=== PATIENT | male | born 1985 | race Caucasian/White ===

== ENCOUNTER 2021-11-06 16:38 | Emergency (ER) | payer OTHER ==
[2021-11-06 19:35] LABS: HEMOGLOBIN 14.1 gm/dl (14.0-17.5); RED BLOOD COUNT 4.73 M/UL (4.20-5.50); WHITE BLOOD COUNT 6.5 K/UL (4.5-11.0)
[2021-11-06 19:52] LABS: BUN/CREATININE RATIO 6 (0-10)
[2021-11-06] MEDS ORDERED: CHRONULAC20 GM/30 M PO (20:34)
== END 2021-11-06 21:26 | disposition home or self-care (01) ==
LOC: ER1 16:38
PROVIDERS: Preventive Medicine Occupational Medicine
DX: K59.00 Constipation, unspecified (principal)
CPT/HCPCS: 74022; 80053; 85025; 86140; 96374; 99284; J1885